=== PATIENT | female | born 1980 | race Caucasian/White ===

== ENCOUNTER → 2019-01-09 | Outpatient (CLI) | payer BC ==
[2019-01-09 15:11] LABS: Basophils # (A) 0.1 k/uL (0-0.2); Basophils % (A) 1 %; Eosinophils # (A) 0.3 k/uL (0-0.7); Eosinophils % (A) 3 %; HCT 43.1 % (34.0-46.0); HGB 14.4 gm/dL (11.4-16.0); Lymphocytes # (A) 1.7 k/uL (1.0-4.8); Lymphocytes % (A) 20 %; MCH 28.7 pg (25.0-35.0); MCHC 33.4 g/dL (31.0-37.0); MCV 85.9 fL (80.0-100.0); Mean Platelet Volume 6.4; Monocytes # (A) 0.5 k/uL (0-1.0); Monocytes % (A) 6 %; Neutrophils # (A) 5.8 k/uL (1.3-7.7); Neutrophils % (A) 68 %; Platelet Count 288 k/uL (150-450); RBC 5.02 m/uL (3.80-5.40); RDW 12.2 % (11.5-15.5); WBC 8.5 k/uL (3.8-10.6)
== END ==
LOC: LABPAT 14:22
PROVIDERS: ATTEND Obstetrics & Gynecology
DX: Z01.812 Encounter for preprocedural laboratory examination (principal); N93.8 Other specified abnormal uterine and vaginal bleeding; Z30.432 Encounter for removal of intrauterine contraceptive device
CPT/HCPCS: 36415; 85025

== ENCOUNTER 2019-01-29 09:18 | Day surgery (SDC) | payer BC ==
[2019-01-24 15:42] VITALS: BMI 24.7
--- NOTE | 2019-01-25 12:15 | HP ---
HISTORY AND PHYSICAL DATE OF PROCEDURE: 01/29/2019 HISTORY: This is a 38-year-old 5, para 3-0-2-3 woman with a long-standing history of problematic and irregular periods. She has not had resolution with medical management including oral contraceptive pills and is currently on a Mirena IUD with ongoing daily bleeding. She requests removal of this IUD and NovaSure endometrial ablation for control of her bothersome periods. ALLERGIES: None. MEDICATIONS: Mirena IUD. PAST MEDICAL HISTORY: Dysfunctional uterine bleeding. PAST DOCUMENT PROCESSING SPECIALIST HISTORY: She is a 5, para 3 with a history of 3 term spontaneous vaginal deliveries and 2 miscarriages. No history of abnormal Pap smears or STDs. She currently has a Mirena for contraception. SOCIAL HISTORY: She is , negative for tobacco, alcohol, and drug use. She is a teacher. FAMILY HISTORY: Noncontributory. REVIEW OF SYSTEMS: Negative except for that described above. PHYSICAL EXAM: In general, this is a very pleasant female in no obvious distress. HEENT: Exam is unremarkable for palpable lymphadenopathy or thyromegaly. LUNGS: Clear to auscultation bilaterally. HEART: Regular rate and rhythm with no murmur. ABDOMEN: Slim, soft and nontender with no rebound, no guarding and no flank pain. On pelvic examination, she has normal female external genitalia without lesions or irritation. The cervix appears normal with IUD strings visible. There are no polyps or lesions noted. On bimanual examination, the uterus is small, freely mobile in the midline with no adnexal masses or pain noted. ASSESSMENT: This is a 38-year-old, 5, para 3 woman with longstanding history of dysfunctional uterine bleeding, who has failed conservative management. She is scheduled to undergo diagnostic hysteroscopy with NovaSure endometrial ablation and removal of Mirena intrauterine device. This procedure has been reviewed in detail with her including risks, benefits, and alternatives. She understands she needs another reliable form of contraception as her Mirena will be removed and is not recommended and indeed can be quite problematic after ablation procedure. Other risks include bleeding, uterine perforation, infection or damage to pelvic organs. The patient understands these risks and consent has been obtained. MMODL / IJN: [id number] /
[~2019-01-29 09:18] MED LIST: DEXAMETHASONE SOD PHOSPHATE 10 MG/ML 1 ML VIAL IV ONE; HYDROmorphone 0.5 MG/0.5 ML SYRINGE IVP PRN; LACTATED RINGERS 1,000 ML IV SCH; LIDOCAINE 1% 20 ML VIAL (10MG/ML) FOR IV START INTRADERMA PRN; ONDANSETRON 4 MG/2 ML VIAL IVP ONE; Pre Op ABX Message 1 EACH MISC MISCELLANE ONE; fentaNYL (PF) 50 MCG/ML 2 ML AMP IV PRN
[2019-01-29] MEDS ORDERED: LACTATED RINGERS 1,000 ML IV ONE (09:46)
[2019-01-29] MEDS ORDERED: fentaNYL (PF) 50 MCG/ML 2 ML AMP ONE (11:07)
[2019-01-29] MEDS ORDERED: LIDOCAINE 1% INJ 10MG/ML (20 ML MDV) ONE (11:07)
[2019-01-29] MEDS ORDERED: PROPOFOL 10 MG/ML 20 ML VIAL IV ONE (11:07)
[2019-01-29] MEDS ORDERED: MIDAZOLAM 2 MG/2 ML VIAL ONE (11:07)
[2019-01-29] MEDS ORDERED: LIDOCAINE 1%-EPI 1:100,000 20 ML VIAL SQ ONE ×2 (11:12→11:28)
--- NOTE | 2019-01-29 11:47 | P.OP ---
Date of Procedure: 01/29/19 Preoperative Diagnosis: Dysfunctional uterine bleeding Intrauterine device Postoperative Diagnosis: Dysfunctional uterine bleeding Procedure(s) Performed: Removal of intrauterine device Diagnostic hysteroscopy NovaSure endometrial ablation Anesthesia: MAC, local Surgeon: Maria Teresa Nevarez Estimated Blood Loss (ml): 10 IV fluids (ml): 500 Urine output (ml): 300 Pathology: none sent Condition: stable Disposition: PACU Operative Findings: Intact IUD. Benign-appearing endometrium on hysteroscopy with no gross intracavitary lesions. Description of Procedure: After the patient and her were met in the preoperative holding area and all questions were answered, she was taken to the operating room where anesthetic was administered without incident. Appropriate timeout procedure was undertaken. She was positioned, prepped and draped in the dorsal lithotomy position. The bladder was drained for approximately 300 mL of clear urine. Exam under anesthetic was performed. Speculum was placed in the vagina and the cervix was grasped anteriorly with a single-tooth tenaculum. Paracervical block with lidocaine plus epinephrine was placed. The IUD strings were visualized and grasped with a ring forcep. The IUD was then removed without difficulty and appears completely intact. The uterus was sounded to 10 cm. The cervix was then sequentially dilated with Hegar dilators to allow for passage of the diagnostic hysteroscope. No gross intracavitary lesions were appreciated with the hysteroscope. There were some clot and debris in the uterus. The hysteroscope was removed and the cervix was further dilated to allow for passage of the NovaSure ablation device. The device was on inserted per product protocol. The length was 6 cm, width 4.8 cm, power 150 W. Treatment cycle was initiated after cavity assessment test was passed. The treatment cycle was 36 seconds. Following cessation of the treatment cycle the device was removed. The hysteroscope was reintroduced and desiccation of the endometrium was appreciated. All instruments were then removed from the vagina. No active bleeding was noted. The patient was awoken from anesthetic without incident and transported to recovery area in stable condition. All counts were correct.
[2019-01-29 11:57] VITALS: TEMP 97.1
[2019-01-29] MEDS ORDERED: KETOROLAC 30 MG/ML 1 ML VIAL IVP ONE (12:00)
[2019-01-29 12:06] VITALS: RESP 16
[2019-01-29] MEDS ORDERED: ACETAMINOPHEN TAB 325 MG TAB PO ONE (12:36)
[2019-01-29 12:53] VITALS: BP 125/83; PULSE 86
== END 2019-01-29 13:11 | disposition home or self-care (01) ==
LOC: OR 09:18
PROVIDERS: ATTEND Obstetrics & Gynecology
DX: N93.8 Other specified abnormal uterine and vaginal bleeding (principal); Z30.432 Encounter for removal of intrauterine contraceptive device
CPT/HCPCS: 81025; 58563; 58301; J2250; J1100; J2405; J2001; J3010; J1885; J2704

== ENCOUNTER → 2020-01-14 | Outpatient (CLI) | payer BC ==
[2020-01-14 15:12] LABS: Basophils # (A) 0.1 k/uL (0-0.2); Basophils % (A) 1 %; Eosinophils # (A) 0.2 k/uL (0-0.7); Eosinophils % (A) 3 %; HCT 42.9 % (34.0-46.0); HGB 14.3 gm/dL (11.4-16.0); Lymphocytes % (A) 14 %; MCH 28.5 pg (25.0-35.0); MCHC 33.3 g/dL (31.0-37.0); MCV 85.6 fL (80.0-100.0); Mean Platelet Volume 6.6; Monocytes # (A) 0.4 k/uL (0-1.0); Monocytes % (A) 5 %; Neutrophils # (A) 5.1 k/uL (1.3-7.7); Neutrophils % (A) 75 %; Platelet Count 241 k/uL (150-450); RBC 5.02 m/uL (3.80-5.40); RDW 12.3 % (11.5-15.5); WBC 6.7 k/uL (3.8-10.6)
[2020-01-14 15:18] LABS: African American GFR (CKD) >90 (>60 ml/min/1.73 sqM); Anion Gap 8 mmol/L; Blood Urea Nitrogen 15 mg/dL (7-17); Carbon Dioxide 27 mmol/L (22-30); Chloride 103 mmol/L (98-107); Glucose 111 mg/dL (74-99); Non-African American GFR(CKD) >90 (>60 ml/min/1.73 sqM); Potassium 3.7 mmol/L (3.5-5.1); Sodium 138 mmol/L (137-145)
== END | disposition home or self-care (01) ==
LOC: LABPAT 13:47
PROVIDERS: ATTEND Obstetrics & Gynecology
DX: Z01.818 Encounter for other preprocedural examination (principal); N93.8 Other specified abnormal uterine and vaginal bleeding
CPT/HCPCS: 80051; 82565; 82947; 84520; 85025; 87086

== ENCOUNTER 2020-01-22 05:49 | Day surgery (SDC) | payer BC ==
[2020-01-18 14:30] VITALS: BMI 26.2
[~2020-01-22 05:49] MED LIST changes: -DEXAMETHASONE SOD PHOSPHATE 10 MG/ML 1 ML VIAL IV ONE; +DEXAMETHASONE SOD PHOSPHATE 4 MG/ML 1 ML VIAL IV ONE; +LIDOCAINE 1% (10MG/ML) FOR IV START INTRADERMA PRN; -LIDOCAINE 1% 20 ML VIAL (10MG/ML) FOR IV START INTRADERMA PRN; +MIDAZOLAM 2 MG/2 ML VIAL IV PRN; -ONDANSETRON 4 MG/2 ML VIAL IVP ONE; -Pre Op ABX Message 1 EACH MISC MISCELLANE ONE; -fentaNYL (PF) 50 MCG/ML 2 ML AMP IV PRN
[2020-01-22] MEDS: ONDANSETRON 4 MG/2 ML VIAL IVP ONE ×2 (06:51→10:04)
[2020-01-22] MEDS ORDERED: fentaNYL (PF) 50 MCG/ML 2 ML AMP ONE (07:25)
[2020-01-22] MEDS ORDERED: SUCCINYLCHOLINE CHLORIDE 100 MG/5 ML SYR IV ONE (07:25)
[2020-01-22] MEDS ORDERED: LIDOCAINE 1% INJ 10MG/ML (20 ML MDV) ONE (07:25)
[2020-01-22] MEDS ORDERED: GLYCOPYRROLATE 0.2 MG/ML 2 ML VIAL ONE (07:25)
[2020-01-22] MEDS ORDERED: NEOSTIGMINE 1 MG/ML 10 ML VIAL ONE (07:25)
[2020-01-22] MEDS ORDERED: ROCURONIUM 10 MG/ML (10 ML VIAL) IV ONE (07:25)
[2020-01-22] MEDS ORDERED: MIDAZOLAM 2 MG/2 ML VIAL ONE (07:25)
[2020-01-22] MEDS ORDERED: HYDROmorphone (PF) 1 MG/ML ONE (07:25)
[2020-01-22] MEDS ORDERED: PROPOFOL 10 MG/ML 20 ML VIAL IV ONE (07:25)
[2020-01-22] MEDS ORDERED: BUPIVACAINE (PF) 0.25% 30 ML VIAL SQ ONE (08:13)
[2020-01-22] MEDS ORDERED: LACTATED RINGERS 1,000 ML IV ONE (09:34)
--- NOTE | 2020-01-22 09:50 | P.OP ---
Date of Procedure: 01/22/20 Preoperative Diagnosis: Dysfunctional uterine bleeding Postoperative Diagnosis: Same Procedure(s) Performed: Robotic-assisted laparoscopic assisted vaginal hysterectomy, bilateral salpingectomy and cystoscopy Anesthesia: DAHIANA Surgeon: Maria Teresa Nevarez City Engineer #1: Valarie Robertson Estimated Blood Loss (ml): 10 IV fluids (ml): 1,000 Urine output (ml): 330 Pathology: other (Uterus and bilateral fallopian tubes) Condition: stable Disposition: PACU Indications for Procedure: Dysfunctional uterine bleeding, failed conservative measures Operative Findings: Normal appearing uterus, bilateral fallopian tubes and ovaries. Adhesions of the colon mesentery to the left adnexa. Description of Procedure: After the patient was met in the preoperative holding area and all questions were answered she was taken to the operating room where anesthetic was administered without incident. Appropriate timeout procedure was undertaken. She was in positioned, prepped and draped in the dorsal lithotomy position. Speculum was placed in the vagina and the cervix was grasped anteriorly with a single-tooth tenaculum. The uterus was sounded to 9 cm. The cervix was then sequentially dilated to allow for insertion of the uterine manipulator. The device was seated and balloon was inflated with approximately 7 mL's of room air. The cup was secured to the cervix. London catheter was placed. Instruments were removed from the vagina. Attention was turned to the abdomen. Gloves were changed. Based on location of the fundus of the uterus for placement was determined. A 7 mm supraumbilical incision was made. The abdomen was elevated and the 5 mm blade less optical trocar was utilized to enter the abdomen under direct visualization. Intraperitoneal placement was confirmed and the abdomen was insufflated with CO2 gas. Under direct visualization a 7 mm right and left da Clemente ports were placed. A 12 mm left upper quadrant assistant to the dean port was placed. The robot was then docked in the usual fashion. The patient was placed in steep Trendelenburg and the bowel was swept out of the pelvis. The procedure was then performed at the console. The above findings were noted. The right fallopian tube was identified and bipolar electrocautery was utilized to sequentially cauterized the mesosalpinx. The tubo-ovarian pedicle on the right was then sequentially cauterized and cut. The right round ligament was sequentially cauterized and cut. The anterior leaf of the broad ligament was incised down to the level of the bladder. The uterine vasculature was skeletonized. Similarly on the left side the fallopian tube was identified. There was increased vascularity in the left adnexal, infundibulopelvic ligament area with some adhesions of the bowel mesentery to this area. The fallopian tube was able to be elevated away from these structures and the mesial salpinx was sequentially cauterized and cut. The tubo-ovarian pedicle was then sequent ially cauterized and cut and this allowed the left adnexa to fall out of the field. The round ligament was then sequentially cauterized and cut and the anterior leaf of the left broad ligament was entered and the bladder flap was created joining the incision made on the right side. The uterine vasculature was then skeletonized on the left side. A Ray-Cristela was introduced into the abdomen to allow for blunt dissection of the bladder away from the cervical cuff anteriorly. Uterine vasculature was further cauterized on both the right and left side. When complete blanching of the uterus was noted colpotomy incision was made. This identified the underlying cervical cup without difficulty. The cervical cup was then utilized as a guide to make the circumferential colpotomy incision with the electrocautery. Once this was completed the uterus was then delivered into the vagina. The cuff was suction irrigated and no active bleeding was noted. Instruments were exchanged to allow for closure of the vaginal cuff. 2-0 Vicryl [place] 6 suture was utilized to close the cuff in a running secured locked fashion. Following closure of the cuff the cuff was observed. This was irrigated and noted to be hemostatic. Surgicel powder was placed along the incision. The course of the right ureter was easily identified and noted to be peristalsing. The left course of the ureter was obscured secondary to previously discussed bowel scarring. All surgical sites including the tubo-ovarian pedicles were inspected and noted to be hemostatic. Attention was then turned to the cystoscopy. The 40 cystoscope was introduced into the bladder after removal of the London catheter. No blood was noted in the bladder and bladder anatomy appeared normal and intact. Both the left and right ureteral orifice see his were easily visualized and both were noted to have active flow of urine. Cystoscope was then removed and the London catheter was replaced. The robot was undocked from the patient per protocol and ports were removed. The abdomen was desufflated of CO2 gas and the incision sites were closed in a subcuticular fashion with 4-0 Vicryl suture. Dressings were placed. Sponge stick in the vagina revealed no active bleeding. The patient was awoken from general anesthetic without incident and was transported to recovery room in good condition. All counts reported to me as correct by the operating room staff.
[2020-01-22] MEDS ORDERED: Acetaminophen-Codeine 300-30mg TAB PO PRN (10:22)
[2020-01-22] MEDS ORDERED: SIMETHICONE 80 MG CHEWABLE PO PRN (10:22)
[2020-01-22] MEDS ORDERED: ONDANSETRON 4 MG/2 ML VIAL IVP PRN (10:22)
[2020-01-22] MEDS ORDERED: METOCLOPRAMIDE 5 MG/ML 2 ML VIAL IVP PRN (10:22)
[2020-01-22] MEDS ORDERED: IBUPROFEN 600 MG TAB PO PRN (10:22)
[2020-01-22] MEDS ORDERED: diphenhydrAMINE 50 MG/ML 1 ML VIAL IVP PRN (10:22)
[2020-01-22] MEDS ORDERED: ACETAMINOPHEN IV (For NPO) 1,000 MG in EMPTY BAG 1 BAG IVPB ONE (11:00)
[2020-01-22] MEDS: KETOROLAC 15 MG/ML 1 ML VIAL IVP PRN ×2 (11:30→23:22)
[2020-01-22] MEDS: LACTATED RINGERS 1,000 ML IV SCH ×2 (19:56→21:13)
[2020-01-23 05:40] VITALS: RESP 16
[2020-01-23] MEDS: LACTATED RINGERS 1,000 ML IV SCH (06:01)
[2020-01-23] MEDS: KETOROLAC 15 MG/ML 1 ML VIAL IVP PRN (06:05)
[2020-01-23 07:38] LABS: Basophils # (A) 0.1 k/uL (0-0.2); Basophils % (A) 1 %; Eosinophils # (A) 0.2 k/uL (0-0.7); Eosinophils % (A) 3 %; HGB 12.8 gm/dL (11.4-16.0); Lymphocytes # (A) 1.1 k/uL (1.0-4.8); Lymphocytes % (A) 12 %; MCHC 34.5 g/dL (31.0-37.0); MCV 86.8 fL (80.0-100.0); Mean Platelet Volume 6.7; Monocytes # (A) 0.5 k/uL (0-1.0); Monocytes % (A) 6 %; Neutrophils # (A) 6.7 k/uL (1.3-7.7); Neutrophils % (A) 77 %; Platelet Count 187 k/uL (150-450); RBC 4.26 m/uL (3.80-5.40); RDW 11.9 % (11.5-15.5); WBC 8.6 k/uL (3.8-10.6)
--- NOTE | 2020-01-23 08:08 | P.DS ---
Providers Expected date of discharge: 01/23/20 Attending physician: Maria Teresa Nevarez Primary care physician: Stated None - Discharge Diagnosis(es) (1) Dysfunctional uterine bleeding Current Visit: Yes Status: Acute Hospital Course: This is a 39-year-old woman with a history of dysfunctional uterine bleeding refractory to conservative management. She was admitted on 01/22/2020 for robotic-assisted laparoscopic assisted vaginal hysterectomy. She proceeded to the operating room where she had an uncomplicated procedure including cystoscopy. Findings at the time of surgery were remarkable for some adhesive disease in the left adnexa. Otherwise uterus bilateral fallopian tubes and bilateral ovaries were normal. Please see the operative report for details. EBL was 10 pounds. Patient's postoperative course was unremarkable. By the evening of postoperative day 0 she had her London catheter discontinued. She was able to void spontaneously. She had initially pain well controlled with intravenous Toradol which was then transitioned to oral pain medications. By the morning of postoperative day #1 she was ambulating and voiding without difficulty. She is tolerating a general diet. She had scant vaginal bleeding. On examination her abdomen was soft and nontender with minimal distention. All 4 incisions were dry, intact and dressed. There was no vaginal bleeding noted on peripads. Her vital signs were stable. Her postoperative day 1 labs were all within normal limits with no evidence of anemia. She was therefore discharged home on postoperative day #1 with routine instructions for postoperative care and follow-up. Procedures: Robotic-assisted laparoscopic assisted vaginal hysterectomy, bilateral salpingectomy and cystoscopy Patient Condition at Discharge: Good Plan - Discharge Summary Discharge Rx Participant: Yes New Discharge Prescriptions: No Action Cetirizine HCl [Zyrtec] 10 mg PO DAILY PRN PRN Reason: allergies Discharge Medication List Cetirizine HCl [Zyrtec] 10 mg PO DAILY PRN 01/18/20 [History] Follow up Appointment(s)/Referral(s): Maria Teresa Nevarez MD [STAFF PHYSICIAN] - 02/11/20 Activity/Diet/Wound Care/Special Instructions: May use [id number] ibuprofen 600 mg every 6 hours and extra strength Tylenol every 8 hours as directed for pain. Follow-up in the office in 2-3 weeks postoperatively or sooner with any concerning signs or symptoms. Alert the office with any heavy vaginal bleeding, foul vaginal discharge, severe abdominal or pelvic pain, fever greater than 100.5, redness or swelling of the lower extremities or any inability to void. No intercourse, nothing in the vagina for 6 weeks postoperatively. No vigorous exercise or heavy lifting until seen postoperatively. Discharge Disposition: HOME SELF-CARE
[2020-01-23 09:08] VITALS: BP 107/71; PULSE 65; TEMP 98.2
[2020-01-23] MEDS ORDERED: ACETAMINOPHEN TAB 325 MG TAB PO PRN (09:52)
== END 2020-01-23 09:25 | disposition home or self-care (01) ==
LOC: OR 05:49 → 6PED 10:43 → OR 01-23 09:25
PROVIDERS: ATTEND Obstetrics & Gynecology
DX: N93.8 Other specified abnormal uterine and vaginal bleeding (principal); D25.1 Intramural leiomyoma of uterus; N80.0 Endometriosis of uterus; N72 Inflammatory disease of cervix uteri; Z98.890 Other specified postprocedural states; Z79.899 Other long term (current) drug therapy; J30.2 Other seasonal allergic rhinitis
CPT/HCPCS: 81025; 86900; 86901; 85025; 86850; 88307; 58552; J2250; J1100; J2710; J0690; J2405; J2001; J3010; J1170; J0131; J1885 ×2; J0330; J2704

== ENCOUNTER → 2022-08-20 | Outpatient (CLI) | payer BC ==
--- NOTE | 2022-08-23 09:16 | MM ---
Reason for Exam: Screening (asymptomatic). Patient History: Menarche at age 16. First Full-Term at age 23. Hysterectomy at age 39. Premenopausal. Risk Values: Roberta 5 year model risk: 0.5%. NCI Lifetime model risk: 8.3%. Tissue Density: The breast tissue is heterogeneously dense. This may lower the sensitivity of mammography. Findings: Analyzed By CAD. There is no suspicious group of microcalcifications or new suspicious mass in either breast. Overall Assessment: Negative, BI-RAD 1 Management: Screening Mammogram of both breasts in [address] [facility] will attempt to contact patient to return for supplemental views and ultrasound if indicated. Patient should continue monthly self-breast exams. A clinical breast exam by your physician is recommended on an annual basis. This exam should not preclude additional follow-up of suspicious palpable abnormalities. Note on Roberta scores and lifetime risk: 1. A Roberta score greater than 3% is considered moderate risk. If this is the case, consider specialist referral to assess eligibility for a risk reducing agent. 2. If overall lifetime risk for the development of breast cancer is 20% or higher, the patient may qualify for future screening with alternating mammogram and breast MRI. Electronically signed and approved by: Juan José Diaz DO
== END | disposition home or self-care (01) ==
LOC: RADMAMWWP 09:02
PROVIDERS: ATTEND Obstetrics & Gynecology
DX: Z12.31 Encounter for screening mammogram for malignant neoplasm of breast (principal)
CPT/HCPCS: 77063; 77067

== ENCOUNTER → 2023-09-14 | Outpatient (CLI) | payer BC ==
--- NOTE | 2023-10-06 10:50 | MM ---
Reason for Exam: Screening (asymptomatic). Last mammogram was performed 1 year(s) and 1 month(s) ago. Patient History: Menarche at age 16. First Full-Term at age 23. Hysterectomy at age 39. Premenopausal. Risk Values: Roberta 5 year model risk: 0.5%. NCI Lifetime model risk: 8.2%. Prior Study Comparison: 08/20/2022 Bilateral MG 3D screening mammo w/cad, [facility]. Tissue Density: The breasts are heterogeneously dense, which may obscure small masses. Findings: Analyzed By CAD. Right breast: There is no suspicious group of microcalcifications or new suspicious mass. Left breast: There is no suspicious group of microcalcifications or new suspicious mass. Overall Assessment: Negative, BI-RAD 1 Management: Screening Mammogram of both breasts in [address] [facility] will attempt to contact patient to return for supplemental views and ultrasound if indicated. Patient should continue monthly self-breast exams. A clinical breast exam by your physician is recommended on an annual basis. This exam should not preclude additional follow-up of suspicious palpable abnormalities. Note on Roberta scores and lifetime risk: 1. A Roberta score greater than 3% is considered moderate risk. If this is the case, consider specialist referral to assess eligibility for a risk reducing agent. 2. If overall lifetime risk for the development of breast cancer is 20% or higher, the patient may qualify for future screening with alternating mammogram and breast MRI. Electronically signed and approved by: Juan José Diaz DO
== END | disposition home or self-care (01) ==
LOC: RADMAMWWP 12:00
PROVIDERS: ATTEND Obstetrics & Gynecology
DX: Z12.31 Encounter for screening mammogram for malignant neoplasm of breast
CPT/HCPCS: 77063; 77067